=== PATIENT | female | born 1980 | race Caucasian/White ===

== ENCOUNTER → 2022-07-21 | Outpatient (CLI) | payer OTHER ==
[~2022-07-21] MED LIST: ACET500; ALBU.083IS IH; ALBU90I INH; ALBU90OI INH; ALBU90OI6 INH; ALBUIS; AMOX500 PO; AZIT250 PO; BCP S; BENZ100A PO; BIRTH CONTROL PILLS PO; CEFD300 PO; CEFU250 PO; CEPH500 PO; CETI10 PO; CIME300; CODACE30 PO; CODGUAEL PO; DESL5 PO; DOXY100 PO; FLUO20 PO; FLUT.05NI; IBUP800 PO; LOPE2C PO; LORA10ER PO; MEDICAL MARIJUANA; MULVITA; MULVITMINE PO; OLOP.1OPSO OU; ORTHO-CYCLEN; PRED20 PO; PROM25 PO; PSEU120ER PO; RXCODACET PO; RXHYDGUAS PO; SULTRIDS PO; TOBR.3OPSO OP
[2022-07-21 08:15] LABS: BASOPHILS ABSOLUTE AUTO 0.03 K/mm3 (0.00-0.23); BASOPHILS PERCENT AUTO 1 % (0-2); EOSINOPHILS ABSOLUTE AUTO 0.01 K/mm3 (0.00-0.68); EOSINOPHILS PERCENT AUTO 0 % (0-6); Hematocrit 42.8 % (33.0-51.0); Hemoglobin 14.2 g/dL (11.5-16.0); IMMATURE GRAN ABSOLUTE AUTO 0.02 K/mm3 (0.00-0.10); IMMATURE GRAN PERCENT AUTO 0 % (0-1); LYMPHOCYTES ABSOLUTE AUTO 1.91 K/mm3 (0.84-5.20); LYMPHOCYTES PERCENT AUTO 39 % (21-46); MONOCYTES ABSOLUTE AUTO 0.27 K/mm3 (0.16-1.47); MONOCYTES PERCENT AUTO 6 % (4-13); Mean Corpuscular HGB 31.1 pg (26.0-34.0); Mean Corpuscular HGB Conc 33.2 g/dL (31.5-36.5); Mean Corpuscular Volume 94 fL (80-100); Mean Platelet Volume 11.2 fL (9.1-12.4); NEUTROPHILS ABSOLUTE AUTO 2.61 K/mm3 (1.96-9.15); NEUTROPHILS PERCENT AUTO 54 % (41-73); Platelet Count 188 K/mm3 (150-400); RDW Coefficient Variation 11.9 % (11.7-14.2); RDW Standard Deviation 41.1 fL (35.1-46.3); Red Blood Cell Count 4.57 M/mm3 (3.80-5.20); White Blood Cell Count 4.85 K/mm3 (4.00-11.30)
[2022-07-21 08:26] LABS: Albumin, Blood 3.8 g/dL (3.4-5.0); Albumin/Globulin Ratio 1.1 (0.8-1.8); Bilirubin, Total 1.4 mg/dL (0.1-1.0); Bun/Creatinine Ratio 12.1 (12.0-20.0); Calcium, Blood 8.5 mg/dL (8.5-10.1); Creatinine, Blood 0.91 mg/dL (0.40-1.00); Globulin, Blood 3.4 g/dL (2.2-4.0); Potassium, Blood 4.4 mmol/L (3.5-5.5); Total Protein, Blood 7.2 g/dL (6.4-8.2)
[2022-07-21 10:03] LABS: Bilirubin, Direct 0.4 mg/dL (0.0-0.3)
== END | disposition home or self-care (01) ==
LOC: LAB SHORT 08:10
PROVIDERS: Physician Assistant
DX: R10.9 Unspecified abdominal pain (principal); R17 Unspecified jaundice
CPT/HCPCS: 80053; 82247; 82248; 83690; 85025